=== PATIENT | female | born 1950 | race Caucasian/White ===

== ENCOUNTER → 2016-06-11 | Day surgery (SDC) | payer MEDICARE, OTHER ==
[~2016-06-11] MED LIST: BACL10TA PO; CLON0.5T PO; DULO1CAP3 PO; FLUD.1 PO; GABA600T PO; HYDR10TA65 PO; HYDR25TA5 PO; LACTATED RINGER'S 1000 ML INJ 1,000 ML ONE; LANTUS2P SQ; LOSA50TA PO; METO50TA PO; MORP1TAB24 PO; MSIR15 PO; NOVOLOGSS SQ; ONABOTULINUMTOXINA INJ 100 UNITS/VIAL ONE; PRAV10TA PO; PROPOFOL 200 MG/20 ML AMP IV ONE; SODIUM CHLORIDE 0.9% INJ 10 ML ONE; WARF-18 PO; WARF-23 PO; ZOFR4TAB PO
== END | disposition home or self-care (01) ==
LOC: ESDC 10:40
PROVIDERS: ATTEND Internal Medicine Gastroenterology
DX: K31.84 Gastroparesis (principal); K29.70 Gastritis, unspecified, without bleeding; K20.9 Esophagitis, unspecified; K22.4 Dyskinesia of esophagus; K29.80 Duodenitis without bleeding; E11.9 Type 2 diabetes mellitus without complications; Z79.4 Long term (current) use of insulin
CPT/HCPCS: 00740; 00810; 43236; 43239; 82948; 88305; 88312; J0585; J3010; J7120

== ENCOUNTER 2016-07-18 20:15 | Inpatient (IN) | payer MEDICARE, OTHER ==
[~2016-07-18] VITALS: Ht 162.6 cm; Wt 92.2 kg
[~2016-07-18 20:15] MED LIST changes: -LACTATED RINGER'S 1000 ML INJ 1,000 ML ONE; -ONABOTULINUMTOXINA INJ 100 UNITS/VIAL ONE; -PROPOFOL 200 MG/20 ML AMP IV ONE; -SODIUM CHLORIDE 0.9% INJ 10 ML ONE
[2016-07-18] MEDS ORDERED: SODIUM CHLOR 0.9% 1000 ML INJ 1,000 ML IV SCH ×2 (20:25→21:00)
[2016-07-18 20:28] LABS: BLOOD GAS BASE EXCESS -3.1 mmol/L (-2-2); BLOOD GAS CARBOXYHEMOGLOBIN 2.5 % (0-4); BLOOD GAS HCO3 21 mmol/L (22-26); BLOOD GAS METHEMOGLOBIN 1.2 % (0-2); BLOOD GAS O2 HGB SATURATION 93 % (90-100); BLOOD GAS OXYGEN CONTENT 16.9 Vol % (12.0-20.0); BLOOD GAS PCO2 35 mmHG (38-42); BLOOD GAS PO2 90 mmHG (61-120); BLOOD GAS TOTAL HGB 12.9 G/DL (12.0-16.0); TEMP CORR TO 98.6
[2016-07-18 20:29] LABS: CRITICAL VALUE NO; DRAW SITE RT RADIAL; LITER FLOW 3 L/M; NUMBER OF ARTERIAL PUNCTURES 1; OXYGEN DEVICE NASAL CANNULA; STAT YES; ULNAR PULSE PRESENT
[2016-07-18 20:30] VITALS: PULSE 100; RESP 18; O2SAT 98
[2016-07-18] MEDS ORDERED: HYDROCORTISONE SOD SUCCINATE 100 MG VIAL IV PUSH ONE (20:30)
[2016-07-18] MEDS ORDERED: SODIUM CHLORIDE 0.9% FLUSH 10 ML FLUSH IVF PRN (20:30)
[2016-07-18 20:46] LABS: AUTOMATED NEUTROPHIL # 8.1 TH/MM3 (1.8-7.7); BASOPHIL # 0.1 TH/MM3 (0-0.2); BASOPHIL % 0.7 % (0.0-2.0); EOSINOPHIL # 0.2 TH/MM3 (0-0.4); EOSINOPHIL % 2.3 % (0.0-4.0); LYMPH % 12.4 % (9.0-44.0); LYMPHOCYTE # 1.2 TH/MM3 (1.0-4.8); MEAN CELL VOLUME 88.1 FL (80.0-100.0); MEAN CORPUSCULAR HEMOGLOBIN 28.7 PG (27.0-34.0); MEAN CORPUSCULAR HGB CONC 32.6 % (32.0-36.0); MONO % 3.8 % (0.0-8.0); NEUT % 80.8 % (16.0-70.0); PLATELET COUNT 276 TH/MM3 (150-450); RED BLOOD COUNT 4.65 MIL/MM3 (4.00-5.30); RED CELL DISTRIBUTION WIDTH 13.5 % (11.6-17.2)
[2016-07-18 20:52] LABS: HEMO FLAGS DIFF FINAL
[2016-07-18 20:53] LABS: CHLORIDE 92 MEQ/L (98-107); POTASSIUM 3.4 MEQ/L (3.5-5.1); SODIUM (NA) 133 MEQ/L (136-145)
[2016-07-18 20:57] LABS: ANION GAP 15 MEQ/L (5-15); BICARBONATE 25.6 MEQ/L (21.0-32.0)
[2016-07-18 20:58] LABS: BLOOD UREA NITROGEN 42 MG/DL (7-18)
[2016-07-18 20:59] VITALS: BP 115/70; PULSE 100; RESP 14; O2SAT 98
[2016-07-18 20:59] LABS: APTT (PATIENT) 27.7 SEC (24.3-30.1); INTERNATIONAL NORMALIZED RATIO 0.9 RATIO; PROTHROMBIN TIME - PATIENT 10.4 SEC (9.8-11.6)
[2016-07-18 21:00] LABS: ALT (GPT) 30 U/L (10-53); AST (GOT) 32 U/L (15-37); GLOMERULAR FILTRATION RATE 11 ML/MIN (>89)
[2016-07-18] MEDS ORDERED: CEFEPIME INJ 2,000 MG in SODIUM CHLORIDE 0.9% INJ 100 ML IV ONE (21:00)
[2016-07-18] MEDS ORDERED: VANCOMYCIN INJ 1,000 MG in SODIUM CHLOR 0.9% 250 ML INJ 250 ML IV ONE (21:00)
[2016-07-18 21:02] LABS: TOTAL BILIRUBIN ADULT 0.9 MG/DL (0.2-1.0)
[2016-07-18 21:03] LABS: ALKALINE PHOSPHATASE 89 U/L (45-117); CREATINE KINASE 757 U/L (26-192)
[2016-07-18 21:03] LABS: BLOOD, URINE NEG (NEG); GLUCOSE,URINE NEG (NEG); KETONE, URINE TRACE mg/dL (NEG); NITRITE,URINE NEG (NEG); PH, URINE 5.5 (5.0-8.5)
--- NOTE | 2016-07-18 21:03 | PD ---
HPI Chief Complaint: Altered Mental Status Time Seen by Provider: 20:24 Travel History International Travel<30 days: No Contact w/Intl Traveler<30days: No History of Present Illness HPI This 65-year-old woman who presents to the emergency department obtunded. History is obtained entirely from EMS, and from the . They report that patient has been increasingly lethargic starting for 5 days ago. Over the past 3 days she really hasn't moved from her chair at all. The reports that she's had trouble with this 6 or 7 times in the past. He sounded thought it was attributed to a polypharmacy is sedating medications. He reports it impairing her medication list and review of her medications for she still on gabapentin, baclofen, clonazepam, and morphine extended release. reports no recent change in her medications. She does manage her opiates herself. reports that over the past couple weeks she's had more trouble with nausea vomiting and diarrhea. Reports she really hasn't eaten or drinking much over the past several days. Review of her medication was so she' s also on hydrocortisone and fludrocortisone otherwise not really sure why. She has a history of inflammatory bowel disease. says he thinks she takes it for her back. He is not sure if she's been getting these medications or not. reports symptoms are very similar to multiple previous other episodes of stupor and lethargy that she's had. On EMS arrival there reported room air saturations of 80%. She had pinpoint pupils, and was obtunded. They gave 1 mg of Narcan. There reported afterwards she did wake Was Still Wasn't Really Talking or Following Commands. Pupils Enlarged, and She Developed Increased Tremor. History Past Medical History Narrative Medical Diabetes GERD Hyperthyroidism Inflammatory bowel disease Melanoma Peripheral neuropathy Osteoarthritis Pneumonia Rheumatoid arthritis Hyperlipidemia PNEUMOCCOCAL Vaccine (Year): 2008 Menopausal: Yes Dilation and Curettage (D&C): Yes Social History Alcohol Use: Yes ("OCCASIONALLY") Tobacco Use: No Allergies-Medications (Allergen,Severity, Reaction): Coded Allergies: Sulfa (Verified Allergy, Severe, Hives, 04/20/16) Dilaudid (Verified Adverse Reaction, Severe, + LOC, 04/20/16) Reported Meds & Prescriptions Reported Meds & Active Scripts Active Zofran (Ondansetron HCl) 4 Mg Tab 4 Mg PO Q6HR PRN Reported Warfarin 2.5 Mg Tab 2.5 Mg PO DIRECTED Warfarin 5 Mg Tab 5 Mg PO DIRECTED Metoprolol Tartrate 50 Mg Tab 50 Mg PO BID Losartan (Losartan Potassium) 50 Mg Tab 50 Mg PO BID Hydrochlorothiazide 25 Mg Tab 25 Mg PO DAILY Gabapentin 600 Mg Tab 600 Mg PO BID Duloxetine DR (Duloxetine HCl) 60 Mg Capdr 60 Mg PO DAILY Clonazepam 0.5 Mg Tab Unknown Dose PO DIRECTED Novolog Inj (Insulin Aspart) 100 Unit/Ml Inj Unknown Dose SQ DIRECTED Lantus Inj (Insulin Glargine) 1,000 Unit/10 Ml Vial 60 Units SQ HS Pravastatin 10 Mg Tab 10 Mg PO DAILY Hydrocortisone 10 Mg Tab 15 Mg PO DAILY Take with food to decrease GI upset Fludrocortisone (Fludrocortisone Acetate) 0.1 Mg Tab 0.1 Mg PO DAILY Morphine ER (Morphine Sulfate) 15 Mg Tab Unknown Dose PO DIRECTED Morphine IR (Morphine Sulfate) 15 Mg Tab Unknown Dose PO DIRECTED PRN Baclofen 10 Mg Tab Unknown Dose PO DIRECTED PRN Review of Systems Except as stated in HPI: all other systems reviewed are Neg Physical Exam Narrative GENERAL: Obtunded 65-year-old woman, no acute distress. SKIN: Focused skin assessment warm/dry. HEAD: Atraumatic. Normocephalic. EYES: Pupils equal and round, about 4 mm. No scleral icterus. No injection or drainage. ENT: No nasal bleeding or discharge. Mucous membranes pink and moist. NECK: Trachea midline. No JVD. CARDIOVASCULAR: Regular rate and rhythm. No murmur appreciated. RESPIRATORY: No accessory muscle use. Clear to auscultation. Breath sounds equal bilaterally. GASTROINTESTINAL: Abdomen soft, non-tender, nondistended. Hepatic and splenic margins not palpable. MUSCULOSKELETAL: No obvious deformities. Some pitting edema in both lower extremities. NEUROLOGICAL: Eyes closed, moans to noxious stimuli. We'll withdraw from painful stimuli. Occasional purposeful movements. Moves all 4 extremities but is very sedate. No apparent lateralization or focal neuro deficits. Data Data Last Documented VS Vital Signs Date Time Temp Pulse Resp B/P Pulse Ox O2 Delivery O2 Flow Rate FiO2 07/18/16 22:36 100 16 104/44 100 Nasal Cannula 2 07/18/16 21:44 101.4 Orders Complete Blood Count With Diff (07/18/16 20:25) Comprehensive Metabolic Panel (07/18/16 20:25) Prothrombin Time / Inr (Pt) (07/18/16 20:25) Act Partial Throm Time (Ptt) (07/18/16 20:25) Troponin I (07/18/16 20:25) Thyroid Stimulating Hormone (07/18/16 20:25) Lactic Acid Sepsis Protocol (07/18/16 20:25) Urinalysis - C+S If Indicated (07/18/16 20:25) Arterial Blood Gas (Abg) (07/18/16 20:25) Blood Culture (07/18/16 20:25) Chest, Single Ap (07/18/16 20:25) Ct Brain W/O Iv Contrast(Rout) (07/18/16 20:25) Blood Glucose (07/18/16 20:25) Ecg Monitoring (07/18/16 20:25) Iv Access Insert/Monitor (07/18/16 20:25) Oximetry (07/18/16 20:25) Urinary Catheter Insert/Apply (07/18/16 20:25) Sodium Chloride 0.9% Flush (Ns Flush) (07/18/16 20:30) Sodium Chlor 0.9% 1000 Ml Inj (Ns 1000 M (07/18/16 20:25) Drug Screen, Random Urine (07/18/16 20:25) Alcohol (Ethanol) (07/18/16 20:25) Salicylates (Aspirin) (07/18/16 20:25) Tylenol (Acetaminophen) (07/18/16 20:25) Creatine Kinase (Cpk) (07/18/16 20:25) Hydrocortisone Inj (Solucortef Inj) (07/18/16 20:30) Vancomycin Inj (Vancomycin Inj) (07/18/16 21:00) Cefepime Inj (Maxipime Inj) (07/18/16 21:00) Sodium Chlor 0.9% 1000 Ml Inj (Ns 1000 M (07/18/16 21:00) CKMB (07/18/16 20:30) CKMB% (07/18/16 20:30) Admit Order (Ed Use Only) (07/18/16 ) Admit To Inpatient (07/18/16 ) Code Status (07/18/16 22:52) Vital Signs (Adult) ROBERT.Q1H (07/18/16 22:52) Activity Bed Rest (07/18/16 22:52) ^ Elevate Head Of Bed (07/18/16 22:52) Neuro Checks . ORDERED (07/18/16 22:52) Intake + Output Q1H (07/18/16 22:52) Diet Npo (07/19/16 Breakfast) Sodium Chlor 0.9% 1000 Ml Inj (Ns 1000 M (07/18/16 22:52) Pantoprazole Inj (Protonix Inj) (07/19/16 09:00) Ondansetron Inj (Zofran Inj) (07/18/16 23:00) Albuterol Neb (Albuterol Neb) (07/18/16 23:00) Complete Blood Count With Diff (07/19/16 04:00) Comprehensive Metabolic Panel (07/19/16 04:00) Magnesium (Mg) (07/19/16 04:00) Phosphorus (Po4) (07/19/16 04:00) Electrocardiogram (07/18/16 23:00) Electrocardiogram (07/19/16 05:00) Electrocardiogram (07/19/16 11:00) Electrocardiogram (07/19/16 17:00) Electrocardiogram (07/19/16 23:00) Resp Oxygen Tahir C Titrat 1-4 L (07/18/16 ) Pt Request For Service (07/18/16 22:52) Pharmacy District Manager / Telemetry ROBERT.Q8H (07/18/16 22:52) Heparin Inj (Heparin Inj) (07/18/16 23:00) Scd Bilateral/Knee High ROBERT.BID (07/18/16 22:52) ^ Initiate Protocol (07/18/16 22:52) ^ Instruction (07/18/16 22:52) Misc Nursing Information (07/18/16 23:00) Chlorhexidine 2% Cloth (Chlorhexidine 2% (07/19/16 04:00) Chlorhexidine 2% Cloth (Chlorhexidine 2% (07/18/16 23:00) Mrsa Pcr Surveillance (07/18/16 22:52) Inpatient Certification (07/18/16 ) Labs Laboratory Tests Test 07/18/16 07/18/16 07/18/16 20:17 20:30 20:59 Blood Gas Puncture Site RT RADIAL Blood Gas Patient Temperature 98.6 Blood Gas HCO3 21 mmol/L Blood Gas Base Excess -3.1 mmol/L Blood Gas Oxygen Saturation 93 % Arterial Blood pH 7.40 Arterial Blood Partial 35 mmHG Pressure CO2 Arterial Blood Partial 90 mmHG Pressure O2 Arterial Blood Oxygen Content 16.9 Vol % Arterial Blood 2.5 % Carboxyhemoglobin Arterial Blood Methemoglobin 1.2 % Blood Gas Hemoglobin 12.9 G/DL Oxygen Delivery Device NASAL CANNULA Blood Gas Liter Flow 3 L/M White Blood Count 10.0 TH/MM3 Red Blood Count 4.65 MIL/MM3 Hemoglobin 13.4 GM/DL Hematocrit 41.0 % Mean Corpuscular Volume 88.1 FL Mean Corpuscular Hemoglobin 28.7 PG Mean Corpuscular Hemoglobin 32.6 % Concent Red Cell Distribution Width 13.5 % Platelet Count 276 TH/MM3 Mean Platelet Volume 8.3 FL Neutrophils (%) (Auto) 80.8 % Lymphocytes (%) (Auto) 12.4 % Monocytes (%) (Auto) 3.8 % Eosinophils (%) (Auto) 2.3 % Basophils (%) (Auto) 0.7 % Neutrophils # (Auto) 8.1 TH/MM3 Lymphocytes # (Auto) 1.2 TH/MM3 Monocytes # (Auto) 0.4 TH/MM3 Eosinophils # (Auto) 0.2 TH/MM3 Basophils # (Auto) 0.1 TH/MM3 CBC Comment DIFF FINAL Differential Comment Prothrombin Time 10.4 SEC Prothromb Time International 0.9 RATIO Ratio Activated Partial 27.7 SEC Thromboplast Time Sodium Level 133 MEQ/L Potassium Level 3.4 MEQ/L Chloride Level 92 MEQ/L Carbon Dioxide Level 25.6 MEQ/L Anion Gap 15 MEQ/L Blood Urea Nitrogen 42 MG/DL Creatinine 4.00 MG/DL Estimat Glomerular Filtration 11 ML/MIN Rate Random Glucose 150 MG/DL Lactic Acid Level 2.5 mmol/L Calcium Level 8.0 MG/DL Total Bilirubin 0.9 MG/DL Aspartate Amino Transf 32 U/L (AST/SGOT) Alanine Aminotransferase 30 U/L (ALT/SGPT) Alkaline Phosphatase 89 U/L Total Creatine Kinase 757 U/L Creatine Kinase MB 4.0 NG/ML Creatine Kinase MB % 0.5 % Troponin I LESS THAN 0.02 NG/ML Total Protein 7.0 GM/DL Albumin 3.3 GM/DL Thyroid Stimulating Hormone 1.220 uIU/ML 3rd Gen Salicylates Level LESS THAN 1.7 MG/DL Acetaminophen Level LESS THAN 2.0 MCG/ML Ethyl Alcohol Level LESS THAN 3 MG/DL Urine Color YELLOW Urine Turbidity CLEAR Urine pH 5.5 Urine Specific [place] 1.017 Urine Protein TRACE mg/dL Urine Glucose (UA) NEG mg/dL Urine Ketones TRACE mg/dL Urine Occult Blood NEG Urine Nitrite NEG Urine Bilirubin NEG Urine Leukocyte Esterase NEG Urine RBC 0-3 /hpf Urine WBC 0-2 /hpf Urine Squamous Epithelial 0-5 /hpf Cells Urine Amorphous Sediment MOD Urine Bacteria FEW /hpf Urine Hyaline Casts 3-5 /lpf Urine Mucus MOD /lpf Microscopic Urinalysis Comment CATH-CULT NOT IND Urine Opiates Screen POS Urine Barbiturates Screen NEG Urine Amphetamines Screen NEG Urine Benzodiazepines Screen NEG Urine Cocaine Screen NEG Urine Cannabinoids Screen NEG MDM Medical Decision Making Medical Screen Exam Complete: Yes Emergency Medical Condition: Yes Interpretation(s) Chest x-ray: Minimal right basilar atelectasis. LABS: CBC is unremarkable. CMP remarkable for elevated BUN and creatinine, 42/4.0, Troponin negative TSH normal Lactate 2.5 coags unremarkable Urine drug screen positive for opiates Alcohol negative Salicylates negative Acetaminophen negative Coags unremarkable UA unremarkable ABG is unremarkable. CT head: No acute disease. Differential Diagnosis Adverse effect to medications, infection, stroke, bleed, hypercapnia, acute adrenal insufficiency, other Narrative Course Medical decision making INITIAL: Is a 65-year-old woman who presents to the emergency department with obtundation and coma, likely related to multiple sedating medications. She received Narcan for opiate reversal but is also on benzos, gabapentin, and baclofen. She is still fairly stuporous. She is protecting her airway and her ABG is not showing any significant CO2 retention. She is on hydrocortisone and fludrocortisone although it is not clear why. Unclear she's been taking them. She has a fever and giving her symptoms, I think should benefit from stress dose steroids. We'll give her a single dose of hydrocortisone. We'll also check labs, cultures. Given her fever, 1. Likely cover her for infection. We' ll also check a CT scan of her head. Patient will be admitted for monitoring and further evaluation. Critical Care Narrative Aggregate critical care time was 25 minutes. Time to perform other separately billable procedures was not included in the critical care time. My time did not include minutes spent treating any other patients simultaneously or on activities that did not directly contribute to the patient's treatment. The services I provided to this patient were to treat and/or prevent clinically significant deterioration that could result in: , unrecognized stroke, respiratory failure, untreated adrenal insufficiency, increased morbidity, other. I provided critical care services requiring my management, as noted below: Chart data review, documentation time, medication orders and management, vital sign assessments/reviewing monitor data, ordering and reviewing lab tests, ordering and interpreting/reviewing x-rays and diagnostic studies, care of the patient and discussion of the patient with the admitting physicians. Diagnosis Primary Impression: Altered mental status Qualified Code: R40.1 - Stupor Admitting Information Admitting Physician Requests: Jeff Vu MD Jul 18, 2016 21:03
[2016-07-18 21:11] LABS: URINE COLOR YELLOW (YELLW/STRAW)
[2016-07-18 21:14] LABS: MUCUS URINE MOD /lpf (OCC); RBC, URINE 0-3 /hpf (0-3); WBC, URINE 0-2 /hpf (0-5)
[2016-07-18 21:15] LABS: BACTERIA, URINE FEW /hpf; COMMENT (UR) CATH-CULT NOT IND; CULTURE IF INDICATED CATH CULTURE NOT IND; SQUAMOUS EPITHELIAL CELL URINE 0-5 /hpf (0-5)
[2016-07-18 21:18] LABS: AMPHETAMINE, URINE NEG (NEG)
[2016-07-18 21:19] LABS: BARBITURATES, URINE NEG (NEG)
[2016-07-18 21:25] LABS: COCAINE, URINE NEG (NEG)
--- NOTE | 2016-07-18 21:27 | RADHPO ---
EXAM DATE/TIME: 07/18/2016 20:53 [facility] COMPARISON: CHEST SINGLE AP, April 03, 2016, 10:52. INDICATIONS : Syncopal episode today MEDICAL HISTORY : Hypertension. Hypercholesterolemia. Arthritis. Asthma. CPOD. Sleep apnea. Gastroparesis. Ileus. Diver ticulitis. Ulcers. IBS. Hiatal hernia. GERD. SURGICAL HISTORY : Unobtainable. Tonsillectomy. Fusion, cervical. ENCOUNTER: Initial ACUITY: 1 day PAIN SCORE: Non-responsive. LOCATION: Bilateral chest FINDINGS: The heart and mediastinal structures are stable. Minimal atelectasis is noted within the right lung base. Hardware is noted within the upper thoracic spine and is unchanged. Degenerative changes are noted involving the shoulders bilaterally. CONCLUSION: 1. Minimal right basilar atelectasis. Herbert Dee MD on July 18, 2016 at 21:23 Board Certified Radiologist. This report was verified electronically.
[2016-07-18 21:44] VITALS: BP 115/70; PULSE 100; RESP 16; TEMP 101.4; O2SAT 98
[2016-07-18 21:52] LABS: ACETAMINOPHEN LESS THAN 2.0 MCG/ML (10.0-30.0)
--- NOTE | 2016-07-18 22:10 | RADHPO ---
EXAM DATE/TIME: 07/18/2016 21:50 [facility] COMPARISON: CT BRAIN W/O CONTRAST, August 24, 2013, 13:45. INDICATIONS : Altered mental status. RADIATION DOSE: 63.61 CTDIvol (mGy) MEDICAL HISTORY : Diabetes mellitus type 2. Rheumatoid arthritis. SURGICAL HISTORY : None. ENCOUNTER: Initial ACUITY: 1 day PAIN SCALE: 0/10 LOCATION: cranial TECHNIQUE: Multiple contiguous axial images were obtained of the head. Using automated exposure control and adj ustment of the mA and/or kV according to patient size, radiation dose was kept as low as reasonably a chievable to obtain optimal diagnostic quality images. FINDINGS: CEREBRUM: The ventricles are normal for age. No evidence of midline shift, mass lesion, hemorrhage or acute in farction. No extra-axial fluid collections are seen. POSTERIOR FOSSA: The cerebellum and brainstem are intact. The 4th ventricle is midline. The cerebellopontine angle i s unremarkable. EXTRACRANIAL: The visualized portion of the orbits is intact. SKULL: The calvaria is intact. No evidence of skull fracture. CONCLUSION: No acute disease. Herbert Dee MD on July 18, 2016 at 22:08 Board Certified Radiologist. This report was verified electronically.
[2016-07-18 22:36] VITALS: BP 104/44; PULSE 100; RESP 16; O2SAT 100
[2016-07-18 22:40] LABS: LACTIC ACID GHOST NOT REPORTABLE
[2016-07-18] MEDS ORDERED: MISCELLANEOUS NURSING INFORMATION XX SCH (23:00)
[2016-07-18] MEDS ORDERED: RESP: ALBUTEROL 2.5 MG/3 ML NEB (PRN) INH (23:00)
[2016-07-18] MEDS ORDERED: DEXTROSE 50% IN WATER 50 ML VIAL(D50) IV PUSH PRN (23:00)
[2016-07-18] MEDS ORDERED: GLUCAGON 1 MG/ML VIAL OTHER PRN (23:00)
[2016-07-18] MEDS ORDERED: CHLORHEXIDINE GLUCONATE 2 % 1 PACK (2 CLOTHS) TOP PRN (23:00)
[2016-07-18] MEDS ORDERED: Vancomycin Consult Pharmacy 1 EA OTHER SCH (23:15)
[2016-07-18 23:52] VITALS: BP 81/43; PULSE 93; RESP 16; RESP 6; O2SAT 99
[2016-07-19] VITALS (30 sets, daily range): BP systolic 63–135; BP diastolic 40–76; PULSE 52–96; RESP 0–24; TEMP 98–98.4; O2SAT 93–100
[2016-07-19] MEDS: HEPARIN SODIUM - SQ 10,000 UNITS/ML VIAL SQ SCH ×3 (00:40→23:44)
[2016-07-19] MEDS: INSULIN ASPART SUPPLEMENTAL SCALE SQ SCH ×2 (00:41→05:14)
[2016-07-19] MEDS: SODIUM CHLOR 0.9% 1000 ML INJ 1,000 ML IV SCH ×4 (02:34→22:52)
[2016-07-19] MEDS: CHLORHEXIDINE GLUCONATE 2 % 1 PACK (2 CLOTHS) TOP SCH (04:00)
[2016-07-19 04:11] LABS: AUTOMATED NEUTROPHIL # 9.2 TH/MM3 (1.8-7.7); BASOPHIL # 0.2 TH/MM3 (0-0.2); BASOPHIL % 1.9 % (0.0-2.0); EOSINOPHIL # 0.1 TH/MM3 (0-0.4); EOSINOPHIL % 0.8 % (0.0-4.0); HEMATOCRIT 32.1 % (35.0-46.0); HEMO FLAGS DIFF FINAL; LYMPH % 6.2 % (9.0-44.0); LYMPHOCYTE # 0.7 TH/MM3 (1.0-4.8); MEAN CELL VOLUME 87.2 FL (80.0-100.0); MEAN CORPUSCULAR HEMOGLOBIN 29.1 PG (27.0-34.0); MEAN CORPUSCULAR HGB CONC 33.4 % (32.0-36.0); MONO % 4.2 % (0.0-8.0); NEUT % 86.9 % (16.0-70.0); PLATELET COUNT 271 TH/MM3 (150-450); RED BLOOD COUNT 3.68 MIL/MM3 (4.00-5.30); RED CELL DISTRIBUTION WIDTH 13.3 % (11.6-17.2); WHITE BLOOD COUNT 10.6 TH/MM3 (4.0-11.0)
[2016-07-19 05:02] LABS: BICARBONATE 24.2 MEQ/L (21.0-32.0); CALCIUM-PROTEIN CORRECTED 7.8 MG/DL (8.5-10.1); MAGNESIUM 1.6 MG/DL (1.5-2.5); POTASSIUM 3.6 MEQ/L (3.5-5.1); TOTAL BILIRUBIN ADULT 0.6 MG/DL (0.2-1.0)
[2016-07-19] MEDS ORDERED: SODIUM CHLORID 0.9% 500 ML INJ 500 ML IV ONE (05:45)
[2016-07-19 06:09] LABS: CKMB 2.6 NG/ML (0.5-3.6)
[2016-07-19] MEDS ORDERED: MAGNESIUM SULFATE INJ 4 GM in SODIUM CHLORIDE 0.9% INJ 92 ML IV PRN (06:15)
[2016-07-19] MEDS ORDERED: RESP: ALBUTEROL 2.5 MG/IPRATROPIUM 0.5 MG NEB (PRN) INH (06:15)
[2016-07-19] MEDS ORDERED: SODIUM PHOSPHATE INJ 30 MMOL in SODIUM CHLOR 0.9% 250 ML INJ 240 ML IV PRN (06:15)
[2016-07-19] MEDS ORDERED: POTASSIUM PHOSPHATE INJ 30 MMOL in SODIUM CHLOR 0.9% 250 ML INJ 250 ML IV PRN (06:15)
[2016-07-19] MEDS ORDERED: POTASSIUM CHLOR 40 MEQ PREMIX 100 ML IV PRN ×2 (06:15)
[2016-07-19] MEDS ORDERED: DEXTROSE 50% IN WATER 50 ML VIAL(D50) IV PUSH PRN (06:15)
[2016-07-19] MEDS ORDERED: MAGNESIUM SULFATE INJ 2 GM in SODIUM CHLORIDE 0.9% INJ 96 ML IV PRN (06:15)
[2016-07-19] MEDS ORDERED: POTASSIUM PHOSPHATE MONOBASIC 500 MG TAB PO PRN (06:15)
[2016-07-19] MEDS ORDERED: POTASSIUM PHOSPHATE MONOBASIC 500 MG TAB PO/TUBE PRN (06:15)
[2016-07-19] MEDS ORDERED: POTASSIUM CHLOR 20 MEQ PREMIX 100 ML IV PRN ×2 (06:15)
[2016-07-19] MEDS ORDERED: MAGNESIUM OXIDE 400 MG TAB PO PRN (06:15)
--- NOTE | 2016-07-19 06:15 | HHI.HP ---
HPI Service Critical Care Medicine Primary Care Physician Issac Ngo MD Admission Diagnosis altered mental status Diagnosis: Chief Complaint: altered mental status Travel History International Travel<30 Days: No Contact w/Intl Traveler <30 Da: No Traveled to Known Affected Are: No History of Present Illness this is a 65yF with history of chronic pain in her back and feet who presents with altered mental status and pin-point pupils. She is very somnolent on my exam this morning and awakens easily, but is quite inattentive and falls back asleep quickly without answering questions. Per report, she is on clonazepam, MS ER, MS IR, Gabapentin, baclofen. She initially responded to naloxone in the emergency department. She also had a fever of 101.4. Her laboratory evidence is significant for wbc 10, Cr 4, Ck 757. Critical care medicine is consulted to evaluate and manage her altered mental status. Review of Systems ROS Limitations: Clinical Condition, Altered Mental Status Past Family Social History Allergies: Coded Allergies: Sulfa (Verified Allergy, Severe, Hives, 07/18/16) Dilaudid (Verified Adverse Reaction, Severe, + LOC, 07/18/16) Past Medical History The patient is unable to provide additional information due to her inattentiveness and somnolence. Per chart review: Diabetes GERD Hyperthyroidism Inflammatory bowel disease Melanoma Peripheral neuropathy Osteoarthritis Pneumonia Rheumatoid arthritis Hyperlipidemia Past Surgical History Patient is unable to provide due to her inattentiveness and somnolence. Reported Medications Patient is unable to provide due to her inattentiveness and somnolence. Per medical record: Zofran (Ondansetron HCl) 4 Mg Tab 4 Mg PO Q6HR PRN Warfarin 2.5 Mg Tab 2.5 Mg PO DIRECTED Warfarin 5 Mg Tab 5 Mg PO DIRECTED Metoprolol Tartrate 50 Mg Tab 50 Mg PO BID Losartan (Losartan Potassium) 50 Mg Tab 50 Mg PO BID Hydrochlorothiazide 25 Mg Tab 25 Mg PO DAILY Gabapentin 600 Mg Tab 600 Mg PO BID Duloxetine DR (Duloxetine HCl) 60 Mg Capdr 60 Mg PO DAILY Clonazepam 0.5 Mg Tab Unknown Dose PO DIRECTED Novolog Inj (Insulin Aspart) 100 Unit/Ml Inj Unknown Dose SQ DIRECTED Lantus Inj (Insulin Glargine) 1,000 Unit/10 Ml Vial 60 Units SQ HS Pravastatin 10 Mg Tab 10 Mg PO DAILY Hydrocortisone 10 Mg Tab 15 Mg PO DAILY Take with food to decrease GI upset Fludrocortisone (Fludrocortisone Acetate) 0.1 Mg Tab 0.1 Mg PO DAILY Morphine ER (Morphine Sulfate) 15 Mg Tab Unknown Dose PO DIRECTED Morphine IR (Morphine Sulfate) 15 Mg Tab Unknown Dose PO DIRECTED PRN Baclofen 10 Mg Tab Unknown Dose PO DIRECTED PRN Active Ordered Medications See MAR Family History Patient is unable to provide due to her inattentiveness and somnolence. Social History Patient is unable to provide due to her inattentiveness and somnolence. per chart review: occasional etoh. Physical Exam Vital Signs Vital Signs Date Time Temp Pulse Resp B/P Pulse Ox O2 Delivery O2 Flow Rate FiO2 07/19/16 05:30 83 16 88/53 97 Nasal Cannula 2 07/19/16 04:35 86 16 77/49 96 Nasal Cannula 2 07/19/16 04:10 96 16 76/51 97 Nasal Cannula 2 07/19/16 03:10 96 16 80/50 97 Nasal Cannula 2 07/19/16 02:10 52 16 103/76 97 Nasal Cannula 2 07/19/16 01:40 97 Nasal Cannula 3.00 07/19/16 01:11 62 16 83/40 98 Nasal Cannula 2 07/19/16 00:53 88 16 75/46 100 Room Air 2 07/18/16 23:52 93 16 81/43 99 Nasal Cannula 2 07/18/16 22:36 100 16 104/44 100 Nasal Cannula 2 07/18/16 21:44 101.4 100 16 115/70 98 07/18/16 21:44 97 18 99 Nasal Cannula 2 07/18/16 20:59 100 14 115/70 98 07/18/16 20:30 100 18 98 Nasal Cannula 2 Physical Exam gen: somnolent, obese female, lying in bed, arouses easily to voice, but then quickly falls back asleep. heent: NC. AT. PERRL. pupils 4mm. EOMI. mucous membranes moist. neck: no jvd. trachea midline chest: unlabored. equal chest rise. clear to auscultation cv: normal rate, regular rhythm. SBP 96 on my evaluation. no appreciable murmurs. abd: obese, soft, nontender, nondistended. no guarding. extr: 2+ peripheral edema. distal pulses 2+ neuro: RASS -2. follows commands. very inattentive. protecting airway. no gross focal motor/sensory deficits. Laboratory Laboratory Tests Test 07/18/16 07/18/16 07/18/16 07/18/16 20:17 20:30 20:59 23:25 Blood Gas Puncture Site RT RADIAL Blood Gas Patient Temperature 98.6 Blood Gas HCO3 21 Blood Gas Base Excess -3.1 Blood Gas Oxygen Saturation 93 Arterial Blood pH 7.40 Arterial Blood Partial 35 Pressure CO2 Arterial Blood Partial 90 Pressure O2 Arterial Blood Oxygen Content 16.9 Arterial Blood 2.5 Carboxyhemoglobin Arterial Blood Methemoglobin 1.2 Blood Gas Hemoglobin 12.9 Oxygen Delivery Device NASAL CANNULA Blood Gas Liter Flow 3 White Blood Count 10.0 Red Blood Count 4.65 Hemoglobin 13.4 Hematocrit 41.0 Mean Corpuscular Volume 88.1 Mean Corpuscular Hemoglobin 28.7 Mean Corpuscular Hemoglobin 32.6 Concent Red Cell Distribution Width 13.5 Platelet Count 276 Mean Platelet Volume 8.3 Neutrophils (%) (Auto) 80.8 Lymphocytes (%) (Auto) 12.4 Monocytes (%) (Auto) 3.8 Eosinophils (%) (Auto) 2.3 Basophils (%) (Auto) 0.7 Neutrophils # (Auto) 8.1 Lymphocytes # (Auto) 1.2 Monocytes # (Auto) 0.4 Eosinophils # (Auto) 0.2 Basophils # (Auto) 0.1 CBC Comment DIFF FINAL Differential Comment Prothrombin Time 10.4 Prothromb Time International 0.9 Ratio Activated Partial 27.7 Thromboplast Time Sodium Level 133 Potassium Level 3.4 Chloride Level 92 Carbon Dioxide Level 25.6 Anion Gap 15 Blood Urea Nitrogen 42 Creatinine 4.00 Estimat Glomerular Filtration 11 Rate Random Glucose 150 Lactic Acid Level 2.5 1.1 Calcium Level 8.0 Total Bilirubin 0.9 Aspartate Amino Transf 32 (AST/SGOT) Alanine Aminotransferase 30 (ALT/SGPT) Alkaline Phosphatase 89 Total Creatine Kinase 757 Creatine Kinase MB 4.0 Creatine Kinase MB % 0.5 Troponin I LESS THAN 0.02 Total Protein 7.0 Albumin 3.3 Thyroid Stimulating Hormone 1.220 3rd Gen Salicylates Level LESS THAN 1.7 Acetaminophen Level LESS THAN 2.0 Ethyl Alcohol Level LESS THAN 3 Urine Color YELLOW Urine Turbidity CLEAR Urine pH 5.5 Urine Specific [place] 1.017 Urine Protein TRACE Urine Glucose (UA) NEG Urine Ketones TRACE Urine Occult Blood NEG Urine Nitrite NEG Urine Bilirubin NEG Urine Leukocyte Esterase NEG Urine RBC 0-3 Urine WBC 0-2 Urine Squamous Epithelial 0-5 Cells Urine Amorphous Sediment MOD Urine Bacteria FEW Urine Hyaline Casts 3-5 Urine Mucus MOD Microscopic Urinalysis Comment CATH-CULT NOT IND Urine Opiates Screen POS Urine Barbiturates Screen NEG Urine Amphetamines Screen NEG Urine Benzodiazepines Screen NEG Urine Cocaine Screen NEG Urine Cannabinoids Screen NEG Test 07/19/16 07/19/16 03:18 04:05 Lactic Acid Level 0.8 White Blood Count 10.6 Red Blood Count 3.68 Hemoglobin 10.7 Hematocrit 32.1 Mean Corpuscular Volume 87.2 Mean Corpuscular Hemoglobin 29.1 Mean Corpuscular Hemoglobin 33.4 Concent Red Cell Distribution Width 13.3 Platelet Count 271 Mean Platelet Volume 8.8 Neutrophils (%) (Auto) 86.9 Lymphocytes (%) (Auto) 6.2 Monocytes (%) (Auto) 4.2 Eosinophils (%) (Auto) 0.8 Basophils (%) (Auto) 1.9 Neutrophils # (Auto) 9.2 Lymphocytes # (Auto) 0.7 Monocytes # (Auto) 0.4 Eosinophils # (Auto) 0.1 Basophils # (Auto) 0.2 CBC Comment DIFF FINAL Differential Comment Sodium Level 139 Potassium Level 3.6 Chloride Level 103 Carbon Dioxide Level 24.2 Anion Gap 12 Blood Urea Nitrogen 38 Creatinine 2.40 Estimat Glomerular Filtration 20 Rate Random Glucose 218 Calcium Level 6.9 Protein Corrected Calcium 7.8 Phosphorus Level 4.1 Magnesium Level 1.6 Total Bilirubin 0.6 Aspartate Amino Transf 34 (AST/SGOT) Alanine Aminotransferase 24 (ALT/SGPT) Alkaline Phosphatase 64 Total Creatine Kinase 1162 Creatine Kinase MB 2.6 Creatine Kinase MB % 0.2 Troponin I 0.03 Total Protein 5.4 Albumin 2.5 Date/Time Procedure Status Source Growth 07/18/16 23:20 Influenza Types A,B Antigen ([facility]) - Final Complete Nasal Washing NEGATIVE FOR FLU A AND B ANTIGEN.... 07/18/16 20:30 Aerobic Blood Culture Received Blood Peripheral Pending 07/18/16 20:30 Anaerobic Blood Culture Received Blood Peripheral Pending Result Diagram: 07/19/1640407/19/16404 Imaging Last Impressions Head CT 07/18/162024 Signed Impressions: Service Date/Time: Monday, July 18, 2016 21:50 - CONCLUSION: No acute disease. Herbert Dee MD Chest X-Ray 07/18/162024 Signed Impressions: Service Date/Time: Monday, July 18, 2016 20:53 - CONCLUSION: 1. Minimal right basilar atelectasis. Herbert Dee MD Assessment and Plan Assessment and Plan Assessment: 65yF with chronic pain and polypharmacy who presents with altered mental status and acute kidney injury. This is most likely toxic encephalopathy secondary to medication overdose. It is unclear whether or not the renal function declined first causing poor renal clearance of her opiates and other substances, or whether her medications caused her to be somnolent enough to become dehydrated leading to JUSTUS. Either way, she has rhabdomyolysis. her renal function is improving rapidly with iv fluids. her mental status is improving as well. I think we can admit her to an ICU and watch her closely, though I expect if she continues to improve on pathway, she could leave the ICU as early as this afternoon or tomorrow. Plan: 1. Toxic Encephalopathy -- likely secondary to polypharmacy and poor renal clearance -- frequent neuro checks -- watch in ICU -- avoid long-acting sedating meds -- hold all her home meds. 2. Chronic pain -- hold oral morphine -- hold gabapentin -- hold baclofen -- tylenol as needed for pain or fever -- when she wakes up, we may have to re-initiate her opiates to prevent withdraw 3. Anxiety -- hold clonopin while sedated. 4. Acute Kidney Injury -- likely prerenal and improving. -- continue NS @ 125cc/hr -- daily BMP -- no need for emergent renal replacement therapy at this time. 5. Rhabdomyolysis -- IVF as above. -- trend CK q6h until downtrending. 6. Fever -- trend fever curve -- f/u blood and sputum cultures -- continue vanc with pharmacy dosing, cefepime, flagyl -- if she remains afebrile with negative cultures, would discontinue abx at 48h. I have a low suspicion for infection given mechanism appears to be over- medication. -- Nursing bedside swallow assessment, if she passes advance diet. if she fails will make NPO and order formal speech and swallow assessment. SCDs and SQH Dispo: admit to the ICU. will re-eval this afternoon, and she may be stable for transfer to floor. Code Status Full Code Ok Khan MD Jul 19, 2016 06:15
[2016-07-19] MEDS ORDERED: Vancomycin Consult Pharmacy 1 EA OTHER SCH (06:30)
[2016-07-19] MEDS ORDERED: GLUCAGON 1 MG/ML VIAL OTHER PRN (06:30)
[2016-07-19] MEDS ORDERED: metroNIDAZOLE 500 MG INJ 100 ML IV SCH (06:30)
[2016-07-19] MEDS: HYDROCORTISONE SOD SUCCINATE 100 MG VIAL IV PUSH SCH ×3 (07:43→21:02)
[2016-07-19] MEDS: INSULIN NovoLIN REGULAR SUPPLEMENTAL SCALE SQ SCH ×4 (07:44→21:17)
[2016-07-19] MEDS: CEFEPIME INJ 1,000 MG in SODIUM CHLORIDE 0.9% INJ 100 ML IV SCH ×3 (08:28→23:44)
[2016-07-19] MEDS: PANTOPRAZOLE SODIUM 40 MG VIAL IV SCH (08:28)
[2016-07-19] MEDS: metroNIDAZOLE 500 MG INJ 100 ML IV SCH ×3 (10:53→23:44)
--- NOTE | 2016-07-19 15:02 | EKG ---
Date Performed: 07/18/2016 Time Performed: 23:44:08 PTAGE: 65 years EKG: Sinus rhythm . Possible inferior infarct - age undetermined Since previous tracing, no significant change noted Ab normal ECG PREVIOUS TRACING : 04/03/2016 10.20 DOCTOR: Stephan Joaquin Interpretating Date/Time 07/19/2016 15:01:26
[2016-07-19 15:11] LABS: CKMB 2.8 NG/ML (0.5-3.6)
[2016-07-19] MEDS: GABAPENTIN 100 MG CAP PO SCH (21:02)
[2016-07-19] MEDS: HYDROmorphone HCL PF 1 MG/ML VIAL IV PUSH PRN (21:18)
[2016-07-19 21:27] LABS: CKMB 2.5 NG/ML (0.5-3.6)
[2016-07-19] MEDS ORDERED: CEFEPIME INJ 2,000 MG in SODIUM CHLORIDE 0.9% INJ 100 ML IV SCH (22:00)
[2016-07-19] MEDS ORDERED: VANCOMYCIN INJ 1,500 MG in SODIUM CHLORID 0.9% 500 ML INJ 500 ML IV SCH (22:00)
[2016-07-20] MEDS: INSULIN NovoLIN REGULAR SUPPLEMENTAL SCALE SQ SCH ×4 (03:15→18:36)
[2016-07-20] MEDS: CHLORHEXIDINE GLUCONATE 2 % 1 PACK (2 CLOTHS) TOP SCH (03:39)
[2016-07-20 03:51] LABS: CKMB 2.5 NG/ML (0.5-3.6)
[2016-07-20 04:00] VITALS: BP 134/77; PULSE 70; RESP 16; TEMP 97.7; O2SAT 99
[2016-07-20] MEDS: HYDROCORTISONE SOD SUCCINATE 100 MG VIAL IV PUSH SCH ×2 (05:53→13:24)
[2016-07-20] MEDS: HYDROmorphone HCL PF 1 MG/ML VIAL IV PUSH PRN ×3 (05:54→18:13)
[2016-07-20] MEDS: SODIUM CHLOR 0.9% 1000 ML INJ 1,000 ML IV SCH ×2 (05:54→14:52)
[2016-07-20] MEDS: metroNIDAZOLE 500 MG INJ 100 ML IV SCH ×2 (05:54→11:26)
[2016-07-20 05:57] LABS: HEMATOCRIT 31.9 % (35.0-46.0); MEAN CELL VOLUME 88.6 FL (80.0-100.0); MEAN CORPUSCULAR HEMOGLOBIN 29.4 PG (27.0-34.0); MEAN CORPUSCULAR HGB CONC 33.2 % (32.0-36.0); PLATELET COUNT 214 TH/MM3 (150-450); RED CELL DISTRIBUTION WIDTH 13.1 % (11.6-17.2); REVIEW FLAG FINAL
[2016-07-20 06:02] LABS: POTASSIUM 3.1 MEQ/L (3.5-5.1)
[2016-07-20 06:07] LABS: BICARBONATE 25.9 MEQ/L (21.0-32.0)
[2016-07-20 08:00] VITALS: BP 149/77; PULSE 61; PULSE 74; RESP 31; TEMP 98.1; O2SAT 97
[2016-07-20 08:30] VITALS: O2SAT 98
[2016-07-20] MEDS ORDERED: PRAVASTATIN SOD 10 MG TAB PO SCH (09:00)
[2016-07-20 09:09] LABS: CKMB 1.8 NG/ML (0.5-3.6)
[2016-07-20] MEDS: ONDANSETRON HCL 4 MG/2 ML VIAL IV PRN ×2 (09:18→18:24)
[2016-07-20] MEDS: GABAPENTIN 100 MG CAP PO SCH (09:20)
[2016-07-20] MEDS: PANTOPRAZOLE SODIUM 40 MG VIAL IV SCH (09:20)
[2016-07-20] MEDS: CEFEPIME INJ 1,000 MG in SODIUM CHLORIDE 0.9% INJ 100 ML IV SCH (09:21)
[2016-07-20] MEDS ORDERED: INFLUENZA VIRUS VACCINE (QUADRIVALENT) 0.5 ML SYR IM ONE (10:00)
[2016-07-20] MEDS: HEPARIN SODIUM - SQ 10,000 UNITS/ML VIAL SQ SCH (11:31)
[2016-07-20 12:00] VITALS: BP 137/87; PULSE 68; RESP 15; TEMP 98; O2SAT 98
--- NOTE | 2016-07-20 15:02 | HHI.PR ---
Subjective Remarks Patient seen and examined today with Dr. Jaquez. Patient is alert and orientated 4. Patient states that she feels that this was brought on by intractable nausea and vomiting for 3 days prior to coming to the hospital. She does have history of gastroparesis which she is followed by GI physician. Patient is tolerating diet at this time. I did speak to the patient's primary medical doctor who indicates that the patient has had multiple evaluations in hospitals, even specialty hospitals up at [facility] for these episodes of altered mental status, syncope. Now has been able to identify any etiology. It is indicated that it could be secondary to polypharmacy. Patient's primary medical doctor also indicates that the patient has had decrease in her pain medication significantly, and she has been doing much better. Objective Vitals Vital Signs Date Time Temp Pulse Resp B/P Pulse Ox O2 Delivery O2 Flow Rate FiO2 07/20/16 08:30 98 21 07/20/16 08:00 Room Air 07/20/16 08:00 61 07/20/16 08:00 98.1 74 31 149/77 97 07/20/16 08:00 98.1 07/20/16 04:00 Room Air 07/20/16 04:00 97.7 70 16 134/77 99 07/20/16 00:00 Room Air 07/19/16 23:49 98.4 76 22 131/75 95 07/19/16 20:00 98.0 88 13 135/70 95 07/19/16 20:00 Room Air 07/19/16 19:50 97 21 07/19/16 19:26 91 07/19/16 17:20 93 Room Air 07/19/16 17:00 80 11 95/64 95 07/19/16 16:00 98.3 92 12 128/69 95 07/19/16 16:00 92 07/19/16 15:00 90 15 116/64 97 I/O 07/19/16 07/19/16 07/19/16 07/20/16 07/20/16 07/20/16 07:00 15:00 23:00 07:00 15:00 23:00 Intake Total 3906 ml 924 ml 1058 ml Output Total 1200 ml 1650 ml 1050 ml 1050 ml Balance -1200 ml 2256 ml -126 ml 8 ml Intake Oral 120 ml IV Total 3786 ml 924 ml 1058 ml Output Urine Total 1200 ml 1650 ml 1050 ml 1050 ml Bladder Scan Volume Amount 586 ml # Bowel Movements 0 Result Diagram: 07/20/1651907/20/16519 Objective Remarks GENERAL: Well-developed, well-nourished, in no acute distress. alert and orientated HEENT: Head is normocephalic without any lesions or masses noted. Facial features are symmetric. Eyes: Pupils equal round reactive to light. Extraocular muscles are intact. Conjunctivae were clear. Oropharyngeal: Pharynx without any erythema edema. Tongue is midline without deviation. Buccal mucosa is moist without any masses or lesions NECK: Supple without any masses. Trachea midline no deviation. No JVD, no bruits are appreciated CARDIAC: Regular rhythm, regular rate. S1/S2 are heard. No murmurs gallops or rubs. LUNGS: Clear to auscultation bilaterally. No wheeze, rhonchi or rales. No use of accessory muscles on inspiration or expiration. ABDOMEN: Soft, nontender. Nondistended. Bowel sounds heard in all 4 quadrants. No organomegaly or masses. Negative rebound, negative guarding EXTREMITIES: No edema, pulses are equal bilaterally. No cyanosis or clubbing NEUROLOGY: Mood and affect appear appropriate. Cranial nerves II through XII grossly intact. Muscle strength 5/5 in upper and lower extremities bilaterally. Deep tendon reflexes are 2+ in upper and lower extremities bilaterally. Urinary Catheter: No Vascular Central Line Catheter: No A/P Assessment and Plan Toxic Encephalopathy: Patient is had plethora of outpatient workup to include especially hospital that [facility] for recurrent episodes. Discussed with patient' s primary medical doctor who indicates that her medications have been decreased significantly. Patient contributes it to nausea, vomiting, diarrhea for 3 days prior to coming to the hospital. However, polypharmacy cannot be completely ruled out. Patient clinically stable at this time. She is very eager to go home. She does appear to be clinically stable this time. Chronic pain: Patient is on Dilaudid 0.5 mg at this time for pain control. Resume home medications upon discharge. Anxiety: Resume home medications Acute Kidney Injury: Prerenal nature. Patient was continued on IV fluids with significant improvement of her renal functions. Rhabdomyolysis: Patient continued on IV fluids with significant improvement from [id number] Febrile illness, resolved. Cultures have been performed to include blood cultures which have remained negative for 2 days, influenza testing was negative. Chest x-ray shows right basilar atelectasis without any signs of infiltrate or pneumonia, urinalysis did not indicate any signs of infection. DVT prevention: Sequential compression devices Written by Alli Dodge PA-C, acting as scribe for Dr. Jaquez on 07/20/16 at 1440. The documentation accurately reflects the work and decisions performed face-to- face by Dr. Jaquez on at 1440. Discharge Planning Discharge home in stable condition Activity: Ad windy. Diet: Healthy heart diet, diabetic diet Medications per medication reconciliation Follow-up primary medical doctor in one week All or portions of this note were transcribed by scribe Alli Dodge. I, Dr. Brandy Jaquez personally performed the history, physical exam, and medical decision making; and confirmed the accuracy of the information in the transcribed note. Alli Dodge Jul 20, 2016 15:02 Brandy Jaquez MD Jul 20, 2016 18:05
--- NOTE | 2016-07-20 15:06 | HHI.DCPOC ---
Discharge Care Plan Diagnosis: (1) Altered mental status (2) Lethargic (3) Rhabdomyolysis (4) [id number] renal failure Goals to Promote Your Health * To prevent worsening of your condition and complications * To maintain your health at the optimal level Directions to Meet Your Goals Take your medications as prescribed Follow your dietary instruction Follow activity as directed Keep your appointments as scheduled Take your immunizations and boosters as scheduled If your symptoms worsen call your PCP, if no PCP go to Urgent Care Center or Emergency Room Smoking is Dangerous to Your Health. Avoid second hand smoke Call the 24-hour hour crisis hotline for domestic abuse at Alli Dodge Jul 20, 2016 15:05
--- NOTE | 2016-07-20 15:06 | HHI.FF ---
Face to Face Verification Diagnosis: (1) Lethargic (2) Altered mental status (3) Rhabdomyolysis (4) Fibromyalgia Physical Therapy Order: Evaluate and Treat, Improve ambulation, Strength and gait training Home Health Nursing Order: Medical education Nursing assessment with vital signs I have seen patient Gloria Asif on 07/20/16. My clinical findings support the need for the requested home health care services because: Deconditioned w/ increased weakness I certify that my clinical findings support that this patient is homebound because: Unsteady gait/balance Alli Dodge Jul 20, 2016 15:06
[2016-07-20 16:00] VITALS: BP 152/87; PULSE 68; RESP 18; TEMP 97.8; O2SAT 97
[2016-07-20] MEDS ORDERED: INSULIN NovoLIN REGULAR SUPPLEMENTAL SCALE SQ PRN (18:45)
[2016-07-20] MEDS ORDERED: VANCOMYCIN INJ 1,500 MG in SODIUM CHLORID 0.9% 500 ML INJ 500 ML IV SCH (22:00)
--- NOTE | 2016-07-22 21:41 | EKG ---
Date Performed: 07/19/2016 Time Performed: 22:30:48 PTAGE: 65 years EKG: Sinus rhythm Poor R wave progression - probable normal variant Inferior and ant/septal T wave changes are nonspec ific Borderline ECG PREVIOUS TRACING : 07/19/2016 17.26 DOCTOR: Ernesto Sanchez Interpretating Date/Time 07/22/2016 21:38:27
--- NOTE | 2016-07-22 21:42 | EKG ---
Date Performed: 07/19/2016 Time Performed: 17:26:50 PTAGE: 65 years EKG: Sinus rhythm with PAC(s) Possible anterior infarct - age undetermined Inferior T wave changes are nonspecific Abn ormal ECG PREVIOUS TRACING : 07/18/2016 23.44 DOCTOR: Ernesto Sanchez Interpretating Date/Time 07/22/2016 21:40:40
[2016-07-22] MEDS ORDERED: PHARMACY ORDERED LAB ONE (21:45)
== END 2016-07-20 19:40 | disposition home health service (06) | DRG 92 ==
LOC: PHED 20:15 → PHEDA 22:52 → PHEDH 07-19 02:52 → PHICU 07-19 11:50
PROVIDERS: ADMIT Family Medicine; ATTEND Family Medicine
DX: G92 Toxic encephalopathy (principal); N17.9 Acute kidney failure, unspecified; M62.82 Rhabdomyolysis; G62.9 Polyneuropathy, unspecified; K31.84 Gastroparesis; E86.0 Dehydration; G89.29 Other chronic pain; F41.9 Anxiety disorder, unspecified; K21.9 Gastro-esophageal reflux disease without esophagitis; E05.90 Thyrotoxicosis, unspecified without thyrotoxic crisis or storm; K52.9 Noninfective gastroenteritis and colitis, unspecified; M19.90 Unspecified osteoarthritis, unspecified site; M06.9 Rheumatoid arthritis, unspecified; E78.5 Hyperlipidemia, unspecified; Z87.01 Personal history of pneumonia (recurrent); E11.9 Type 2 diabetes mellitus without complications; Z79.4 Long term (current) use of insulin; Z79.01 Long term (current) use of anticoagulants; Z85.820 Personal history of malignant melanoma of skin
CPT/HCPCS: 36600; 70450; 71010; 80048; 80053; 80307; 81001; 82550; 82552; 82805; 82948; 83605; 83735; 84100; 84443; 84484; 85025; 85027; 85610; 85730; 87040; 87641; 87804; 93005; 94150; 94640; 94664; 94667; 94668; 96361; 96365; 96375; C9113; J0692; J1170; J1644; J1720; J1815; J2405; J3370; J7030; J7040; J7050; P9612